=== PATIENT | female | born 1985 | race Caucasian/White ===

== ENCOUNTER 2019-01-23 06:41 | Emergency (ER) | payer SELFPAY | END 2019-01-23 07:22 | disposition home or self-care (01) | LOC: ERS 06:41 | DX: T78.40XA Allergy, unspecified, initial encounter (principal); F41.9 Anxiety disorder, unspecified; F32.9 Major depressive disorder, single episode, unspecified; Z87.891 Personal history of nicotine dependence | CPT/HCPCS: 99283 ==

== ENCOUNTER 2023-02-11 20:22 | Emergency (ER) | payer SELFPAY ==
[~2023-02-11 20:22] MED LIST: Iopamidol-370 76% 500 ML MDV (1 ML CHARGE) ONE
[2023-02-11 20:59] LABS: Bacteria/HPF None Seen HPF (None Seen); Bilirubin Negative (Negative); Blood, Urine Trace (Negative); CAUTI Indications for Culture Dysuria,urgency,freq; Clarity Clear (Clear); Glucose, Urine (Dipstick) Normal (Negative); Ketone, Urine Negative (Negative); Leukocyte Negative Leu/uL (Negative); Nitrite Negative (Negative); Protein, Urine (Dipstick) Negative (Neg-Trace); Specific Gravity, Urine 1.017 (1.002-1.036); Squamous Epithelial 0-3 HPF (0-3); Urobilinogen Normal mg/dL (Less than 2); WBC/HPF 0-3 HPF (0-3)
[2023-02-11 21:01] LABS: Urine Culture Reflex No No
[2023-02-11 21:50] LABS: #Monocytes 0.8 thou/uL (0.11-0.59); #Neutrophils 8.1 thou/uL (1.40-6.50); %Basophils 0.2 % (0.0-1.0); %Eosinophils 0.1 % (0.0-10.0); %Lymphocytes 5.8 % (21.0-51.0); %Monocytes 8.3 % (0.0-10.0); %Neutrophils 85.2 % (42.0-75.0); Hemoglobin 12.9 g/dL (12.0-16.0); Mean Corpuscular HGB CONC 35.1 g/dL (32.0-36.0); Mean Corpuscular Hemoglobin 31.2 pg (27.0-31.0); Mean Corpuscular Volume 89.1 fl (78.0-98.0); Mean Platelet Volume 9.6 fL (7.4-10.4); Platelet Count 214 10x3/uL (130-400); RBC Distribution Width 12.4 % (11.5-14.5); Red Blood Cell (RBC) Count 4.13 mill/uL (4.20-5.40); White Blood Cell (WBC) Count 9.5 10x3/uL (4.8-10.8)
[2023-02-11 21:52] LABS: BHCG - Serum Negative (NEGATIVE); Pregs Control Background? CLEAR/WHITE (CLR/WHITE); Pregs Control Bar Appear? YES (CONTROL BAR)
[2023-02-11 22:10] LABS: ALT (SGPT) 10 U/L (8-55); AST (SGOT) 21 U/L (5-34); Albumin 4.1 g/dL (3.5-5.0); Alkaline Phosphatase 62 U/L (40-110); Anion Gap 15 mmol/L (10-20); BUN (Urea Nitrogen) 16 mg/dL (7.0-18.7); Bilirubin, Total 0.4 mg/dL (0.2-1.2); Calc. Creatinine Clearance 0 mL/min (70-130); Calcium 9.1 mg/dL (7.8-10.44); Carbon Dioxide 23 mmol/L (22-29); Chloride 104 mmol/L (98-107); Estimated GFR 84; Globulin 3.1 g/dL (2.4-3.5); Glucose 104 mg/dL (70-105); Potassium 3.6 mmol/L (3.5-5.1); Protein, Total 7.2 g/dL (6.0-8.3); Sodium 138 mmol/L (136-145)
== END 2023-02-11 23:07 | disposition home or self-care (01) ==
LOC: ERS 20:22
DX: B34.9 Viral infection, unspecified (principal); R31.29 Other microscopic hematuria; Z87.891 Personal history of nicotine dependence
CPT/HCPCS: 36415; 71045; 74177; 80053; 81001; 83605; 84703; 85025; 87040; 87086; 93005; 96360; Q9967

== ENCOUNTER 2023-02-16 01:58 | Emergency (ER) | payer SELFPAY ==
[2023-02-16] MEDS ORDERED: Famotidine 20 MG TAB ONE (02:34)
[2023-02-16] MEDS ORDERED: predniSONE 20 MG TAB ONE (02:34)
== END 2023-02-16 02:59 | disposition home or self-care (01) ==
LOC: ERS 01:58
DX: T78.40XA Allergy, unspecified, initial encounter (principal)
CPT/HCPCS: 93005; J7512